=== PATIENT | female | born 1985 | race Two or more races ===

== ENCOUNTER 2021-07-13 04:41 | Day surgery (SDC) | payer OTHER ==
[2021-07-12 15:40] VITALS: BMI 35.7
[2021-07-13] MEDS ORDERED: ONABOTULINUMTOXINA 200 UNIT/VIAL VIAL IM ONE ×3 (09:31→10:00)
[2021-07-13] MEDS ORDERED: PROPOFOL 20 ML ONE ×2 (09:41)
[2021-07-13] MEDS ORDERED: ceFAZolin 2 GRAM PREMIX BAG IVPB ONE (09:50)
[2021-07-13] MEDS ORDERED: SODIUM CHLORIDE 0.9% P/F 10 ML VIAL IJ ONE (10:19)
[2021-07-13] MEDS ORDERED: ONDANSETRON 4 MG/2 ML VIAL IVPUSH PRN (10:29)
[2021-07-13] MEDS ORDERED: LACTATED RINGERS SOLUTION 1,000 ML IV SCH (10:30)
[2021-07-13 12:25] VITALS: BP 116/70; PULSE 62; TEMP 97.7
== END 2021-07-13 12:41 | disposition home or self-care (01) ==
LOC: JASU-SURG 04:41
PROVIDERS: ATTEND Urology
PROC: 3E0K8GC Introduction of Other Therapeutic Substance into Genitourinary Tract, Via Natural or Artificial Opening Endoscopic (ICD-10-PCS; principal; 2021-07-13 09:00)
DX: N32.81 Overactive bladder (principal)
CPT/HCPCS: 81025; 87086; 88108; 94760; J0585

== ENCOUNTER 2023-04-02 18:02 | Emergency (ER) | payer OTHER ==
[2023-04-02 18:08] VITALS: BP 123/75; RESP 18; TEMP 98.2; BMI 34.9
[2023-04-02] MEDS ORDERED: ACETAMINOPHEN 500 MG TABLET (FP) ONE (19:12)
[2023-04-02] MEDS ORDERED: ACETAMINOPHEN 500 MG TABLET (FP) PO ONE (19:14)
[2023-04-02 19:18] VITALS: PULSE 72
== END 2023-04-02 19:30 | disposition home or self-care (01) ==
LOC: JERFT 18:02
DX: S00.03XA Contusion of scalp, initial encounter (principal); F41.9 Anxiety disorder, unspecified; F39 Unspecified mood [affective] disorder; W22.8XXA Striking against or struck by other objects, initial encounter
CPT/HCPCS: 99283-25